=== PATIENT | male | born 1980 | race Caucasian/White ===

== ENCOUNTER 2018-02-17 12:03 | Emergency (ER) | payer SELFPAY ==
[2018-02-17 12:23] VITALS: TEMP 97.1
--- NOTE | 2018-02-17 12:49 | RAD ---
EXAM DESCRIPTION: Hand,Right 2 Views CLINICAL HISTORY: crush injury 2nd digit COMPARISON: None. IMPRESSION: 3 views of the right hand show minimally displaced tuft fracture of the distal phalanx of the second finger with surrounding soft tissue swelling. No other fracture or dislocation is identified. There also appears to be soft tissue injury of the fingernail seen on lateral view. Electronically signed by: Sami Khalil MD 02/17/2018 12:48 PM CDT
[2018-02-17] MEDS ORDERED: SULFA/TRIMETH 800/160 (DS) TAB 1 EA TAB PO ONE (12:58)
[2018-02-17] MEDS ORDERED: NEOMYCIN-BACITRACIN-POLYMYXIN 0.9 GM UD TOP ONE (13:01)
--- NOTE | 2018-02-17 13:01 | ED.PDOC ---
History of Present Illness - General Chief Complaint: Upper Extremity Injury Stated Complaint: smashed right index finger Time Seen by Provider: 02/17/18 12:21 Source: patient Exam Limitations: no limitations - History of Present Illness Initial Comments: The patient is a 37-year-old male presenting to emergency room secondary toa crush injury to the index finger right hand while at work yesterday. He has rapid of himself. The injury as to the tip of the second finger. It is a near degloving injury however there is a minimal of an external laceration. The nail and tip of the finger tissue were pulled forward however there is no laceration. He is able to move the finger. The tip is exquisitely sensitive. He will lose the nail. The hand is very dirty and the patient has been urinating the area for about 5 minutes. Hydrogen peroxide was subsequently used to clean. Timing/Duration: 24 hours Severity: moderate Improving Factors: nothing Worsening Factors: nothing Associated Symptoms: denies symptoms Allergies/Adverse Reactions: Allergies NO KNOWN ALLERGY Allergy (Verified 02/17/18 12:22) Home Medications: Ambulatory Orders Sulfa/Trimeth 800/160 (Ds) Tab [Bactrim DS Tab] 1 ea PO BID #14 tab 02/17/18 Review of Systems - Review of Systems Constitutional: States: no symptoms reported EENTM: States: no symptoms reported Respiratory: States: no symptoms reported Cardiology: States: no symptoms reported Gastrointestinal/Abdominal: States: no symptoms reported Genitourinary: States: no symptoms reported Musculoskeletal: States: see HPI Skin: States: see HPI Neurological: States: no symptoms reported Endocrine: States: no symptoms reported All other Systems: No Change from Baseline Past Medical History (General) - Patient Medical History Hx Stroke: No Hx Congestive Heart Failure: No Hx Diabetes: No Surgical History: no surgical history - Vaccination History Hx Tetanus, Diphtheria Vaccination: Yes - 4 months ago Hx Influenza Vaccination: No - Social History Hx Tobacco Use: Yes Family Medical History - Family History Father Family History: Unknown Living Status: Unknown Physical Exam - Physical Exam General Appearance: Alert, Comfortable, No apparent distress Eye Exam: bilateral normal Ears, Nose, Throat: hearing grossly normal Neck: full range of motion Respiratory: no respiratory distress, no accessory muscle use Cardiovascular/Chest: normal peripheral pulses, no edema Peripheral Pulses: radial,right: 2+, radial,left: 2+ Rectal Exam: deferred Back Exam: normal inspection Extremity: normal range of motion, no pedal edema, normal capillary refill, other - see history of present illness. 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 There is mild exposure of the base of the nail. X-ray shows a small fracture at the distal tuft. Being that this is the case the nail will be left in place to provide an anti-microbial barrier. I have no doubt that he will lose the nail in the next week or 2. He is going to be placed on Bactrim twice daily for the next 7 days for antibiotic prophylaxis. He needs to keep the base of the nail covered with antibiotic ointment and a Band-Aid. Right now sensation appears to be roughly preserved however given the nature of the injury, I would not be surprised to see some decreased sensation in the finger over time as well as possibly some early arthritis in the distal interphalangeal joint. The wound was cleaned here. he needs to wash the wound at least 2-3 times daily with an antibacterial soap and water. ER warnings were given for any evidence of infection or worsening. Departure - Departure Clinical Impression: Crushed finger, distal Qualifiers: Encounter type: initial encounter Qualified Code(s): S67.10XA - Crushing injury of unspecified finger(s), initial encounter Disposition: Discharge to Home or Self Care Condition: Fair Departure Forms: ED Discharge - Pt. Copy, Patient Portal Self Enrollment Instructions: DI for Hand Injury Diet: regular diet Activity: no pushing/pulling with affected limb Prescriptions: Sulfa/Trimeth 800/160 (Ds) Tab [Bactrim DS Tab] 1 ea PO BID #14 tab Home Medications: Ambulatory Orders Sulfa/Trimeth 800/160 (Ds) Tab [Bactrim DS Tab] 1 ea PO BID #14 tab 02/17/18 Additional Instructions: the patient is a 37-year-old male presenting to emergency room secondary to a crush injury to the tip of the second digit of the right hand. There is mild exposure of the base of the nail. X-ray shows a small fracture at the distal tuft. Being that this is the case the nail will be left in place to provide an anti-microbial barrier. I have no doubt that he will lose the nail in the next week or 2. He is going to be placed on Bactrim twice daily for the next 7 days for antibiotic prophylaxis. He needs to keep the base of the nail covered with antibiotic ointment and a Band-Aid. Right now sensation appears to be roughly preserved however given the nature of the injury, I would not be surprised to see some decreased sensation in the finger over time as well as possibly some early arthritis in the distal interphalangeal joint. The wound was cleaned here. he needs to wash the wound at least 2-3 times daily with an antibacterial soap and water. ER warnings were given for any evidence of infection or worsening. the patient was given a finger splint to protect the end of the finger with.
[2018-02-17 13:19] VITALS: BP 120/79; O2SAT 99
== END 2018-02-17 13:23 | disposition home or self-care (01) ==
LOC: ER 12:03
DX: S62.630A Displaced fracture of distal phalanx of right index finger, initial encounter for closed fracture (principal); S67.190A Crushing injury of right index finger, initial encounter; Y99.0 Civilian activity done for income or pay; Y92.69 Other specified industrial and construction area as the place of occurrence of the external cause; X58.XXXA Exposure to other specified factors, initial encounter; Z87.891 Personal history of nicotine dependence